=== PATIENT | female | born 1990 | race Caucasian/White ===

== ENCOUNTER 2022-02-01 06:55 | Inpatient (IN) | payer MEDICAID ==
[~2022-02-01] VITALS: Ht 177.8 cm; Wt 69.0 kg
[~2022-02-01 06:55] MED LIST: ALPR0.5T PO; DIGO0.1220 PO; HYDR-4798 PO; LIDO5DIS21 TOP; MET25T PO; ONDA-144 PO
[2022-02-01] MEDS ORDERED: LIDOCAINE 2%HCL (LOCAL ANESTH.) INJ 10ml MDV ONE ×2 (07:59→08:01)
[2022-02-01] MEDS ORDERED: fentaNYL CITRATE 100 MCG/2 ML VL ONE (08:07)
[2022-02-01] MEDS ORDERED: ONDANSETRON HCL 4 MG/2 ML VIAL ONE (08:08)
[2022-02-01] MEDS ORDERED: MIDAZOLAM HCL 2MG/2ML 2ml VIAL (1mg/ml) ONE (08:08)
[2022-02-01] MEDS ORDERED: ceFAZolin 1GM/50ML 50 ML IV ONE (09:55)
[2022-02-01] MEDS ORDERED: ASPirin 81 mg TAB ONE (09:57)
[2022-02-01] MEDS ORDERED: NITROGLYCERIN 0.4 MG SL TAB SL PRN (12:00)
[2022-02-01] MEDS ORDERED: MORPHINE SULFATE INJECTION 2 MG/ML SYRG IV PRN (12:00)
[2022-02-01] MEDS ORDERED: ONDANSETRON HCL 4 MG/2 ML VIAL IV PRN (12:00)
[2022-02-01] MEDS: HYDROcodone-ACET 5/325MG TAB PO PRN (13:22)
[2022-02-01] MEDS ORDERED: DIGOXIN 0.125 MG TAB PO ONE (14:00)
[2022-02-01] MEDS ORDERED: METOPROLOL TARTRATE 25 MG TAB PO ONE (14:00)
[2022-02-01] MEDS: ALPRAZolam 0.5 MG TAB PO PRN ×2 (14:25→22:26)
[2022-02-01 16:51] VITALS: BP 127/77
[2022-02-01 22:00] VITALS: BP 131/85
[2022-02-02 05:00] VITALS: BP 122/75
[2022-02-02 09:00] VITALS: BP 127/85
[2022-02-02] MEDS: HYDROcodone-ACET 5/325MG TAB PO PRN (09:23)
[2022-02-02] MEDS ORDERED: METOPROLOL TARTRATE 25 MG TAB PO SCH (10:00)
[2022-02-02] MEDS ORDERED: ASPirin-EC 81 mg tab PO SCH (10:00)
[2022-02-02] MEDS ORDERED: ALPRAZolam 0.5 MG TAB PO SCH (10:00)
[2022-02-02] MEDS ORDERED: DIGOXIN 0.125 MG TAB PO SCH (10:00)
[2022-02-02] MEDS: ALPRAZolam 0.5 MG TAB PO PRN (10:36)
[2022-02-02 13:00] VITALS: BP 123/80
[2022-02-02 15:55] VITALS: BP 123/80
== END 2022-02-02 16:29 | disposition home or self-care (01) | DRG 175 ==
LOC: CATH 06:55 → TELE 11:51 → TELE-WESTW 12:34 → TELE 12:34 → TELE-WESTW 15:23
PROVIDERS: ADMIT Specialist; ATTEND Specialist
PROC: 4A0234Z Measurement of Cardiac Electrical Activity, Percutaneous Approach (ICD-10-PCS; principal; 2022-02-01)
PROC: 02583ZZ Destruction of Conduction Mechanism, Percutaneous Approach (ICD-10-PCS; 2022-02-01)
PROC: 02K83ZZ Map Conduction Mechanism, Percutaneous Approach (ICD-10-PCS; 2022-02-01)
DX: I47.1 Supraventricular tachycardia (principal); Z20.822 Contact with and (suspected) exposure to COVID-19
CPT/HCPCS: 99152; 99153; G0378; J0690; J2001; J2250; J2405

== ENCOUNTER 2025-08-02 11:54 | Inpatient (IN) | payer MEDICAID ==
[~2025-08-02] VITALS: Ht 175.3 cm; Wt 67.3 kg
[~2025-08-02 11:54] MED LIST changes: -DIGO0.1220 PO; +DIGO125T11 PO
--- NOTE | 2025-08-02 12:09 | ED.PDOC ---
History of Present Illness HPI Comments 34-year-old female came to the ER stating that she has been having chest pain for the past few days. No radiation of the chest pain to the shoulder back arm. She has been feeling lightheaded ever since she started to have this chest pain. She does have a history of hypertension and SVT for which she she was ablated. She does take flecainide. Denies any other symptoms. Chief Complaint: Chest Pain Time Seen by MD: 12:00 Reviewed Notes: Nurses Notes, Medications, Allergies Allergies: Coded Allergies: NO KNOWN ALLERGIES (Unverified , 01/30/22) Home Meds Reported Medications Ondansetron (Zofran) 4 Mg Tab, 8 MG PO PRN for NAUSEA / VOMITING 01/30/22 Lidocaine (LIDODERM 5% TOPICAL PATCH) 1 Patch Ph, 1 PATCH TOP DAILY PRN for MILD PAIN (1-3 PAIN SCALE) 01/30/22 Hydrocodone-Acetaminophen (Hydrocodone Bitartrate/AC 10-325 mg) 1 Tab Tab, 1 TAB PO TIDPRN PRN for MODERATE PAIN (4-6 PAIN SCALE) 01/30/22 Alprazolam (Xanax) 0.5 Mg Tb, 1 TAB PO [id number] PRN for ANXIETY 01/30/22 Digoxin (Digox) 125 Mcg Tab, 125 MCG PO DAILY 01/30/22 Metoprolol Tartrate (Lopressor) 25 Mg Tb, 12.5 MG PO DAILY 01/30/22 Information Source: Patient Mode of Arrival: Ambulatory Severity: Moderate Timing: Days Duration: Since onset Past Medical History PAST MEDICAL HISTORY: HTN Surgical History: Denies all surgeries 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 Social History Smoker: Non-Smoker Alcohol: Denies ETOH Use Drugs: Denies Drug Use Constitutional: denies: chills, diaphoresis, fatigue, fever, malaise, sweats, weakness, others EENTM: denies: blurred vision, double vision, ear bleeding, ear discharge, ear drainage, ear pain, ear ringing, eye pain, eye redness, hearing loss, mouth pain, mouth swelling, nasal discharge, nose bleeding, nose congestion, nose pain, photophobia, tearing, throat pain, throat swelling, voice changes, others Respiratory: denies: cough, hemoptysis, orthopnea, SOB at rest, shortness of breath, SOB with excertion, stridor, wheezing, others Cardiovascular: reports: chest pain; denies: dizzy spells, diaphoresis, Dyspnea on exertion, edema, irregular heart beat, left arm pain, lightheadedness, palpitations, PND, syncope, others Gastrointestinal: denies: abdomen distended, abdominal pain, blood streaked bowels, constipated, diarrhea, dysphagia, difficulty swallowing, hematemesis, melena, nausea, poor appetite, poor fluid intake, rectal bleeding, rectal pain, vomiting, others Genitourinary: denies: abnormal vagina bleeding, burning, dyspareunia, dysuria, flank pain, frequency, hematuria, incontinence, pain, , vagina discharge, urgency, others Neurological: denies: dizziness, fainting, headache, left sided numbness, left sided weakness, numbness, paresthesia, pre-existing deficit, right sided numbness, right sided weakness, seizure, speech problems, tingling, tremors, weakness, others Musculoskeletal: denies: back pain, gout, joint pain, joint swelling, muscle pain, muscle stiffness, neck pain, others Integumetry: denies: bruises, change in color, change in hair/nails, dryness, laceration, lesions, lumps, rash, wounds, others Allergic/Immunocompromised: denies: Difficulty Healing, Frequent Infections, Hives, Itching, others Hematologic/Lymphatic: denies: anemia, blood clots, easy bleeding, easy bruising, swollen glands, others Endocrine: denies: excessive hunger, excessive sweating, excessive thirst, excessive urination, flushing, intolerance to cold, intolerance to heat, unexplained weight gain, unexplained weight loss, others Psychiatric: denies: anxiety, bipolar disorder, depression, hopeless, panic disorder, schizophrenia, sleepless, suicidal, others Physical Exam General Appearance: Moderate Distress HEENT: Normal ENT Inspection, Pharynx Normal, TMs Normal Neck: Full Range of Motion, Non-Tender, Normal, Normal Inspection Respiratory: Chest Non-Tender, Lungs Clear, No Accessory Muscle Use, No Respiratory Distress, Normal Breath Sounds Cardiovascular: No Edema, No JVD, No Murmur, No Gallop, Normal Peripheral Pulses, Regular Rate/Rhythm Breast Exam: Deferred Gastrointestinal: No Organomegaly, Non Tender, No Pulsatile Mass, Normal Bowel Sounds, Soft Genitalia: Deferred Pelvic: Deferred Rectal: Deferred Extremities: No calf tenderness, Normal capillary refill, Normal inspection, N ormal range of motion, Non-tender, No pedal edema Musculoskeletal : Apperance: Normal Neurologic: Alert, proof technician II-XII nml as Tested, No Motor Deficits, Normal Affect, Normal Mood, No Sensory Deficits Cerebellar Function: Normal Reflexes: Normal Skin: Dry, Normal Color, Warm Peripheral Pulses: 3+ Radial (R), 3+ Radial (L) Lymphatic: No Adenopathy Was a procedure done? Was a procedure done?: No EKG EKG : Pulse Rate (adult): 79 Cardiac Rhythm: NSR Differential Dx Considerations may include: Anemia Electrolyte imbalance X-Ray, Labs, Meds, VS Vital Signs Date Time Temp Pulse Resp B/P (MAP) Pulse Ox O2 Delivery O2 Flow Rate FiO2 08/02/25 11:58 98.0 97 16 138/82 97 98.0 Patient alert. Complaining of chest pain. Vitals stable. Answering questions. Was given aspirin. EKG reviewed does not show any acute changes pain High-risk. Cardiology consultation. Echocardiogram. Explained to the patient. Continue monitoring. Time of 1ST Reevaluation: 12:07 Reevaluation 1ST: Unchanged Patient Education/Counseling: Diagnosis, Treatment, Prognosis Family Education/Counseling: No Family Present SEPSIS Sepsis Screen Date sepsis recognized/suspect: Aug 02, 2025 Time Sepsis recognized/suspect: 115 Recent Procedure: No On Antibiotic Therapy: No Respiratory Rate >20: No Heart Rate >90: Yes Temp<36 C (96.8 F) or >38.3 C: No SBP <90 or MAP <65 mmHG: No New Acute Mental Status Change: No Is the patient on CPAP, BIPAP,: No Physician Orders Troponin-I Hs (08/02/25 12:03) Electrocardigram (08/02/25 12:03) Troponin-I Hs (08/02/25 13:03) Troponin-I Hs (08/02/25 15:03) Electrocardigram (08/02/25 13:03) Electrocardigram (08/02/25 15:03) Vital Signs Date Time Temp Pulse Resp B/P (MAP) Pulse Ox O2 Delivery O2 Flow Rate FiO2 08/02/25 11:58 98.0 97 16 138/82 97 98.0 Departure 1 Departure Time of Disposition: 12:08 Impression: Primary Impression: Chest pain of unknown etiology Disposition: ADMITTED INPATIENT Admit to: Med Surg Condition: Guarded Critical Care Note Critical Care Time?: Yes (90 min-critical care time only) Stability Stability form required: No Heart Score Heart Score: Heart Score Response (Comments) Value History Slightly Suspicious 0 EKG Normal 0 Age <45 0 Risk Factors 1 or 2 risk factors 1 Troponin Normal limit 0 Total 1 BERNICE MONTERO MD Aug 02, 2025 12:09
[2025-08-02 12:24] LABS: Hematocrit 37.9 % (36.0-46.0); Hemoglobin 12.9 g/dL (12.2-16.2); Mean Corpuscular Hemoglobin 31.7 pg (28.0-32.0); Mean Corpuscular Volume 93.1 fL (80.0-100.0); Nucleated Red Blood Cells % 0.0 %
[2025-08-02 12:34] LABS: Chloride 103 mmol/L (98-107); Sodium 140 mmol/L (136-145)
[2025-08-02 12:35] LABS: Anion Gap 8 (5-15); Calcium 9.3 mg/dL (8.7-10.4); Carbon Dioxide 29 mmol/L (20-31)
--- NOTE | 2025-08-02 12:37 | DVH ---
AP portable chest CLINICAL INDICATION: sob FINDINGS: Heart size is normal. No infiltrates or effusions. No bony thoracic abnormalities. IMPRESSION: 1. Normal chest x-ray.
[2025-08-02 12:40] LABS: BUN/Creatinine Ratio 6.7 (10.0-20.0); Glucose 93 mg/dL (74-106)
[2025-08-02 12:42] LABS: Blood Urea Nitrogen 7 mg/dL (9-23); Potassium 3.4 mmol/L (3.5-5.1)
[2025-08-02 13:05] LABS: Urine Protein, UAD Negative (Negative)
--- NOTE | 2025-08-02 13:07 | ECG ---
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
--- NOTE | 2025-08-02 14:54 | ECG ---
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
[2025-08-02] MEDS ORDERED: DOCUSATE SOD 100 MG CAP PO PRN ×2 (15:30→15:45)
[2025-08-02] MEDS ORDERED: POTASSIUM EFFERVESENT TAB 25 MEQ PO ONE (15:30)
[2025-08-02] MEDS ORDERED: SODIUM CHLORIDE 0.9% 1,000 ML IV SCH (15:30)
[2025-08-02] MEDS ORDERED: MORPHINE SULFATE INJ 2 MG/ml SYRG IV PRN ×2 (15:30→15:45)
[2025-08-02] MEDS ORDERED: ONDANSETRON HCL 4 MG/2 ML VIAL IV PRN ×2 (15:30→15:45)
[2025-08-02] MEDS ORDERED: NITROGLYCERIN 0.4 MG SL TAB SL PRN ×2 (15:30→15:45)
--- NOTE | 2025-08-02 15:32 | DVHHP2 ---
History of Present Illness Reason for Visit: chest pain History of Present Illness 35-year-old female with a past medical history of hypertension and supraventricular tachycardia (SVT) presents with two days of chest pain, fatigue, and palpitations. She underwent her last ablation procedure on February 02, [address] Holm, with prior care through [facility] as well. She states she has been adherent to her medications, including cardizem and flecainide, and has recently seen her tie puller. For the past two days, she reports intermittent chest pain radiating to her left arm and back, accompanied by increased fatigue, weakness, and lightheadedness. She denies fever, cough, or other infectious symptoms. She tracks her heart rate via an Android smartwatch and notes that her HR fluctuates between the 50s and 140s daily, with a recent peak of 160 bpm on July 17. Today, she reports her heart rate has been consistently in the 120s. She was previously instructed to come to the ED if symptomatic. She reports that the weakness is more pronounced when her HR drops into the 50s. There are no specific aggravating or relieving factors for the chest pain. while In the ED, the patient underwent a full cardiac workup. Labs revealed CBC and BMP unremarkable aside from troponins (x2) which were negative, creatinine 1.04, TSH pending, and magnesium drawn. Chest X-ray and D-dimer were unremarkable. Given ongoing symptoms and abnormal heart rate variability, she will be admitted for further monitoring with cardiology consultation and echocardiogram ordered. Telemetry monitoring has been initiated. Past Medical History see hpi above Past Surgical History see hpi above Family History Reviewed, non-contributory to the management of this case. Past Social History The patient lives at home, denies smoking, alcohol or illicit drugs abuse. Review of Systems Constitutional: No: Fever, Chills, Sweats, Weakness, Malaise, Other Eyes: No: Pain, Vision change, Conjunctivae inflammation, Eyelid inflammation, Other, Redness ENT: No: Ear pain, Ear discharge, Nose pain, Nose discharge, Nose congestion, Mouth pain, Mouth swelling, Throat pain, Throat swelling, Other Respiratory: No: Cough, Dry, Shortness of breath, SOB with excertion, Wheezing, Hemoptysis, Pleuritic Pain, Sputum, Wheezing, Other Cardiovascular: Chest Pain; No: Palpitations, Orthopnea, Paroxysmal Noc. Dyspnea, Edema, Lt Headedness, Other Gastrointestinal: No: Nausea, Vomiting, Abdominal Pain, Diarrhea, Constipation, Melena, Hematochezia, Other Genitourinary: No Dysuria, No Frequency, No Incontinence, No Hematuria, No Retention, No Other Musculoskeletal: No: other, neck pain, shoulder pain, arm pain, back pain, hand pain, leg pain, foot pain Skin: No: Rash, Lesions, Jaundice, Bruising, Other Neurological: No: Weakness, Numbness, Incoordination, Change in speech, Confusion, Seizures, Other Allergies: Coded Allergies: NO KNOWN ALLERGIES (Unverified , 01/30/22) Exam Vital Signs Vital Signs Date Time Temp Pulse Resp B/P (MAP) Pulse Ox O2 Delivery O2 Flow Rate FiO2 08/02/25 14:53 67 08/02/25 12:22 15 138/62 (87) 95 08/02/25 12:20 Room Air* 0 21 08/02/25 11:58 98.0 98.0 General Appearance: Alert, Oriented X3, Cooperative, No acute distress HEENT: Atraumatic, PERRLA, EOMI, Mucous membr. moist/pink Respiratory: Clear to auscultation, Normal air movement Cardiovascular: Regular rate, Normal S1, Normal S2, No murmurs Abdominal: Normal bowel sounds, Soft, No tenderness, No hepatospenomegaly, No masses Extremities: No clubbing, No cyanosis, No edema, Normal pulses, No tenderness/swelling Skin: No rashes, No breakdown, No significant lesion Neuro: Normal gait, Normal speech, Strength at 5/5 X4 ext, Normal tone, Sensation intact, Cranial nerves 3-12 NL Psych/Mental Status: Mental status NL, Mood NL Labs/Xrays Chest x-ray unremarkable I reviewed labs, imaging CT scan abdomen pelvis, EKG and all diagnostic studies on this patient from ED records and the medical chart Labs Test 08/02/25 12:46 08/02/25 12:30 08/02/25 12:08 Range/Units Troponin I High Sensitivity < 3 L </=34 ng/L Urine Color Colorless Yellow Urine Clarity Clear Clear Urine pH 6.0 5.0-9.0 Urine Specific [place] 1.006 1.001-1.035 Urine Protein Negative Negative Urine Ketones Negative Negative Urine Blood Trace H Negative /uL Urine Nitrite Negative Negative Urine Bilirubin Negative Negative Urine Urobilinogen Normal Negative mg/dL Urine Leukocyte Esterase Negative Negative /uL Urine RBC 1 0 - 4 /hpf Urine Microscopic WBC < 1 0-5 /HPF Urine Squamous Epithelial Cells Few <5 /hpf Urine Bacteria None seen None Seen /hpf Urine Glucose Normal Normal mg/dL White Blood Count 6.0 4.4-10.8 10^3/uL Red Blood Count 4.08 4.0-5.20 10^6/uL Hemoglobin 12.9 12.2-16.2 g/dL Hematocrit 37.9 36.0-46.0 % Mean Corpuscular Volume 93.1 80.0-100.0 fL Mean Corpuscular Hemoglobin 31.7 28.0-32.0 pg Mean Corpuscular Hemoglobin Concent 34.0 32.0-36.0 g/dL Red Cell Distribution Width 13.4 11.8-14.3 % Platelet Count 243 140-450 10^3/uL Mean Platelet Volume 7.4 6.9-10.8 fL Neutrophils (%) (Auto) 65.0 37.0-80.0 % Lymphocytes (%) (Auto) 25.8 10.0-50.0 % Monocytes (%) (Auto) 6.7 0.0-12.0 % Eosinophils (%) (Auto) 1.3 0.0-7.0 % Basophils (%) (Auto) 1.2 0.0-2.0 % Neutrophils # (Auto) 3.9 1.6-8.6 10 ^3/uL Lymphocytes # (Auto) 1.5 0.4-5.4 10 ^3/uL Monocytes # (Auto) 0.4 0-1.3 10 ^3/uL Eosinophils # (Auto) 0.1 0-0.8 10 ^3/uL Basophils # (Auto) 0.1 0-0.2 10 ^3/uL Nucleated Red Blood Cells 0.0 % D-Dimer, Quantitative < 0.19 0.0-0.49 mg/L FEU Sodium Level 140 136-145 mmol/L Potassium Level 3.4 L 3.5-5.1 mmol/L Chloride Level 103 98-107 mmol/L Carbon Dioxide Level 29 20-31 mmol/L Anion Gap 8 5-15 Blood Urea Nitrogen 7 L 9-23 mg/dL Creatinine 1.04 H 0.550-1.02 mg/dL Glomerular Filtration Rate Calc 72 >90 mL/min BUN/Creatinine Ratio 6.7 L 10.0-20.0 Serum Glucose 93 74-106 mg/dL Calcium Level 9.3 8.7-10.4 mg/dL SEPSIS Sepsis Screen Date sepsis recognized/suspect: Aug 02, 2025 Time Sepsis recognized/suspect: 1154 Recent Procedure: No On Antibiotic Therapy: No Respiratory Rate >20: No Heart Rate >90: Yes Temp<36 C (96.8 F) or >38.3 C: No SBP <90 or MAP <65 mmHG: No New Acute Mental Status Change: No Is the patient on CPAP, BIPAP,: No Physician Orders Electrocardigram (08/02/25 15:03) Chest Portable (08/02/25 12:09) *Consult Dr. Holm (08/02/25 12:09) Admit (08/02/25 15:24) Allergies (08/02/25 15:24) Code Status (08/02/25 15:24) 0.9% Ns 1000 Ml (08/02/25 15:30) Ondansetron Hcl (Zofran) (08/02/25 15:30) Docusate Sodium Capsule (Colace Capsule) (08/02/25 15:30) Complete Blood Count (08/03/25 04:00) Comprehensive Metabolic Panel (08/03/25 04:00) Cardiac Diet-2gna,Lofat,Lochol (08/02/25 Dinner) Echo 2d Mode Cardiac Dop (08/02/25 15:24) Condition: Stable (08/02/25 15:24) BRP (08/02/25 15:24) Morphine Sulfate Injection (08/02/25 15:30) Sequential Compression Device (08/02/25 ) Nitroglycerin Sublingual (Ntrostat Subli (08/02/25 15:30) Stat Ekg For Chest Pain (08/02/25 15:24) Notify Of Changes From Base (08/02/25 15:24) Sales Merchandising Specialist For 24 Hours (08/02/25 15:24) Emergency Dysrhythmia Protocol (08/02/25 15:24) Rhythm Strips Once Every Shift (08/02/25 15:24) Oxygen By Nasal Cannula (08/02/25 15:24) Potassium Effervesent Tab (Klor-Con/Ef) (08/02/25 15:30) Magnesium (08/02/25 15:24) Phosphorus (08/02/25 15:24) Thyroid Stimulating Hormone (08/02/25 15:24) Vital Signs Date Time Temp Pulse Resp B/P (MAP) Pulse Ox O2 Delivery O2 Flow Rate FiO2 08/02/25 14:53 67 08/02/25 13:06 63 08/02/25 12:22 80 15 138/62 (87) 95 08/02/25 12:20 Room Air* 0 21 08/02/25 12:09 79 08/02/25 12:05 79 08/02/25 11:58 98.0 97 16 138/82 97 98.0 Laboratory Tests Test 08/02/25 12:08 White Blood Count 6.0 10^3/uL (4.4-10.8) Medications Medications Dose Ordered Sig/Annette Route Start Time Stop Time Status Last Admin Dose Admin Aspirin 325 mg ONCE ONCE PO 08/02/25 12:15 08/02/25 12:16 DC 08/02/25 12:16 325 MG Assessment/Plan Assessment/Plan 34-year-old female with Chest pain, fatigue, and tachycardia in patient with p rior SVT and ablation; admitted for telemetry monitoring, cardiology evaluation, and echocardiogram. acute SVT, s/p hx Ablation Last ablation February 02, [address] Holm Reports HR fluctuations 54140 bpm (based on Android watch) Today HR sustained in 120s Troponins negative 2, no acute ischemia Cardiology consult echocardiogram ordered Telemetry for rhythm monitoring cont home medication nursing to put dose in computer ordered tsh and mag, phos fu results acute Atypical Chest Pain Radiates to left back and arm No fever, no cough, no signs of infection Chest X-ray normal, D-dimer negative Monitor cardiac enzymes, EKGs, and telemetry acute Fatigue and Lightheadedness Likely secondary to arrhythmia and HR variability Monitor for hypotension or bradyarrhythmias acute hypokalemia replete k ordered mag and phos fu results chronic problems Hypertension Continue home antihypertensive Supraventricular tachycardia S/p cardiac ablation (January 2022) Hypertension FEN / PPx: Fluids: IV hydration Electrolytes: Monitor BMP, TSH, and magnesium Nutrition: Regular cardiac diet DVT Prophylaxis: SCDs while inpatient GI Prophylaxis: no gi ppx since no hx of gerds or gi bleed DISPOSITION: Admit to telemetry unit for monitoring and evaluation of chest pain, palpitations, and fatigue in the setting of prior SVT ablation. Cardiology to follow. Continue monitoring vitals, heart rhythm, and lab results. Echocardiogram pending. Plan discussed with: Patient My Orders Orders - SANDRINE DHALIWAL DNP Procedure Category Date Status Time Admit ADMIT 08/02/25 Verified 15:24 Allergies NATE 08/02/25 Verified 15:24 Code Status CODE 08/02/25 Verified 15:24 0.9% Ns 1000 Ml PHA 08/02/25 Verified 15:30 Ondansetron Hcl PHA 08/02/25 Verified (Zofran) 15:30 Docusate Sodium PHA 08/02/25 Verified Capsule (Colace 15:30 Complete Blood Count LAB 08/03/25 Verified 04:00 Comprehensive LAB 08/03/25 Verified Metabolic Panel 04:00 Cardiac DIET 08/02/25 Verified Diet-2gna,Lofat,Lochol Dinner Echo 2d Mode Cardiac US 08/02/25 Verified DOP 15:24 Condition: Stable [facility] 08/02/25 Verified 15:24 BRP NATE 08/02/25 Verified 15:24 Morphine Sulfate PHA 08/02/25 Verified Injection 15:30 Sequential NATE 08/02/25 Verified Compression Device Nitroglycerin PHA 08/02/25 Verified Sublingual (Ntrostat 15:30 Stat Ekg For Chest [facility] 08/02/25 Verified Pain 15:24 Notify Md Of Changes [facility] 08/02/25 Verified From Base 15:24 Sales Merchandising Specialist For [facility] 08/02/25 Verified 24 Hours 15:24 Emergency Dysrhythmia [facility] 08/02/25 Verified Protocol 15:24 Rhythm Strips Once [facility] 08/02/25 Verified Every Shift 15:24 Oxygen By Nasal RT 08/02/25 Verified Cannula 15:24 Potassium Effervesent PHA 08/02/25 Verified Tab (Klor-Con/Ef) 15:30 Magnesium LAB 08/02/25 Verified 15:24 Phosphorus LAB 08/02/25 Verified 15:24 Thyroid Stimulating LAB 08/02/25 Verified Hormone 15:24 Date of Service: Aug 02, 2025 Billing Provider: SANDRINE DHALIWAL DNP Common Visit Codes: [id number] INP/OBS CARE (HIGH) SANDRINE DHALIWAL [facility] Aug 02, 2025 15:32
[2025-08-02 15:49] LABS: Magnesium 2.0 mg/dL (1.6-2.6)
[2025-08-02] MEDS: SODIUM CHLORIDE 0.9% 1,000 ML IV SCH (18:37)
[2025-08-02] MEDS: POTASSIUM EFFERVESENT TAB 25 MEQ PO ONE (18:45)
[2025-08-02] MEDS ORDERED: DILT60TA PO (20:16)
[2025-08-02] MEDS ORDERED: FLEC100T PO (20:16)
[2025-08-02 20:36] VITALS: PULSE 81; RESP 17; O2SAT 98
[2025-08-02] MEDS: dilTIAZem 120MG ER CAP PO ONE (21:54)
[2025-08-02] MEDS: FLECAINIDE ACETATE 50 MG TAB PO ONE (23:08)
[2025-08-02 23:57] VITALS: PULSE 64; RESP 16; O2SAT 99
[2025-08-03] VITALS (9 sets, daily range): BP systolic 114–134; BP diastolic 82–95; PULSE 48–74; RESP 16–19; TEMP 97.8–99.1; O2SAT 98–100
--- NOTE | 2025-08-03 02:32 | ECG ---
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
--- NOTE | 2025-08-03 11:00 | DVHINCON2 ---
Date of service: Aug 03, 2025 History of Present Illness HPI Patient is a 34-year-old female who presented with few days of chest discomfort/palpitations/fatigue/lightheadedness. Cardiology is involved for cardiac aspects of care. She does mention tachyarrhythmia and occasional bradycardia. She is known to our practice from outside and before. She has had multiple SVT ablations in the last one was unsuccessful ([place]). She mentions compliance with medications which include 100 mg twice daily flecainide. Home Meds Reported Medications Diltiazem Hcl (Diltiazem Hcl) 60 Mg Tab, 120 MG PO DAILY, MG 08/02/25 Flecainide Acetate (Flecainide Acetate) 100 Mg Tab, 100 MG PO Q12HR, MG 08/02/25 Ondansetron (Zofran) 4 Mg Tab, 8 MG PO PRN for NAUSEA / VOMITING 01/30/22 Lidocaine (LIDODERM 5% TOPICAL PATCH) 1 Patch Ph, 1 PATCH TOP DAILY PRN for MILD PAIN (1-3 PAIN SCALE) 01/30/22 Hydrocodone-Acetaminophen (Hydrocodone Bitartrate/AC 10-325 mg) 1 Tab Tab, 1 TAB PO TIDPRN PRN for MODERATE PAIN (4-6 PAIN SCALE) 01/30/22 Alprazolam (Xanax) 0.5 Mg Tb, 1 TAB PO [id number] PRN for ANXIETY 01/30/22 Digoxin (Digox) 125 Mcg Tab, 125 MCG PO DAILY 01/30/22 Metoprolol Tartrate (Lopressor) 25 Mg Tb, 12.5 MG PO DAILY 01/30/22 Past Medical History Others Past medical history includes hypertension, narrow complex tachycardia, history of SVT and its ablation (repeatedly), depression and anxiety. She has had re peated SVT ablation (last one happened in [place] and was reportedly unsuccessful). Patient Family History: Hypertension G8 MOTHER G8 FATHER Alocohol: None Drugs: None Lives with: With family Review of Systems Constitutional: No symptom reported Cardiovascular: Palpitations Endocrine: No symptom reported Hemotologic/Lymphatic: No symptom reported All Other Systems Fourteen point review of system was performed. Relevant findings as per above and as per HPI. Otherwise negative. H&P Exam Vital Signs Vital Signs Date Time Temp Pulse Resp B/P (MAP) Pulse Ox O2 Delivery O2 Flow Rate FiO2 08/03/25 09:00 98.2 60 18 134/82 (99) 100 98.2 08/03/25 07:55 Room Air* 0 21 General Appeara: Well developed Head Exam: Normal inspection Neck Exam: Normal inspection Eye Exam: bilateral eye PERRL Mouth: Normal Inspection Pulmonary/Respiratory: Normal inspection, Lungs clear Cardiovascular/Chest: Normal inspection, Regular rate Peripheral Pulses: 2+ carotid (R), 2+ carotid (L), 2+ femoral (R), 2+ femoral (L), 2+ dorsalis pedis (R), 2+ dorsalis pedis (L), 2+ Radial (R), 2+ Radial (L) Abdominal Exam: Normal bowel sounds, Soft, No hepatospenomegaly Neuro/Mental St: Alert, Oriented Appearance: Appropriate appearance Eye contact/ Speech: Cooperative Labs/Xrays Labs Test 08/02/25 12:46 08/02/25 12:30 08/02/25 12:08 Range/Units Troponin I High Sensitivity < 3 L </=34 ng/L Urine Color Colorless Yellow Urine Clarity Clear Clear Urine pH 6.0 5.0-9.0 Urine Specific [place] 1.006 1.001-1.035 Urine Protein Negative Negative Urine Ketones Negative Negative Urine Blood Trace H Negative /uL Urine Nitrite Negative Negative Urine Bilirubin Negative Negative Urine Urobilinogen Normal Negative mg/dL Urine Leukocyte Esterase Negative Negative /uL Urine RBC 1 0 - 4 /hpf Urine Microscopic WBC < 1 0-5 /HPF Urine Squamous Epithelial Cells Few <5 /hpf Urine Bacteria None seen None Seen /hpf Urine Glucose Normal Normal mg/dL White Blood Count 6.0 4.4-10.8 10^3/uL Red Blood Count 4.08 4.0-5.20 10^6/uL Hemoglobin 12.9 12.2-16.2 g/dL Hematocrit 37.9 36.0-46.0 % Mean Corpuscular Volume 93.1 80.0-100.0 fL Mean Corpuscular Hemoglobin 31.7 28.0-32.0 pg Mean Corpuscular Hemoglobin Concent 34.0 32.0-36.0 g/dL Red Cell Distribution Width 13.4 11.8-14.3 % Platelet Count 243 140-450 10^3/uL Mean Platelet Volume 7.4 6.9-10.8 fL Neutrophils (%) (Auto) 65.0 37.0-80.0 % Lymphocytes (%) (Auto) 25.8 10.0-50.0 % Monocytes (%) (Auto) 6.7 0.0-12.0 % Eosinophils (%) (Auto) 1.3 0.0-7.0 % Basophils (%) (Auto) 1.2 0.0-2.0 % Neutrophils # (Auto) 3.9 1.6-8.6 10 ^3/uL Lymphocytes # (Auto) 1.5 0.4-5.4 10 ^3/uL Monocytes # (Auto) 0.4 0-1.3 10 ^3/uL Eosinophils # (Auto) 0.1 0-0.8 10 ^3/uL Basophils # (Auto) 0.1 0-0.2 10 ^3/uL Nucleated Red Blood Cells 0.0 % D-Dimer, Quantitative < 0.19 0.0-0.49 mg/L FEU Sodium Level 140 136-145 mmol/L Potassium Level 3.4 L 3.5-5.1 mmol/L Chloride Level 103 98-107 mmol/L Carbon Dioxide Level 29 20-31 mmol/L Anion Gap 8 5-15 Blood Urea Nitrogen 7 L 9-23 mg/dL Creatinine 1.04 H 0.550-1.02 mg/dL Glomerular Filtration Rate Calc 72 >90 mL/min BUN/Creatinine Ratio 6.7 L 10.0-20.0 Serum Glucose 93 74-106 mg/dL Calcium Level 9.3 8.7-10.4 mg/dL Phosphorus Level 2.7 2.4-5.1 mg/dL Magnesium Level 2.0 1.6-2.6 mg/dL Thyroid Stimulating Hormone (TSH) 1.17 0.55-4.78 uIU/mL Assessment/Plan Plan Patient is a 34-year-old female who presented with few days of chest discomfort/palpitations/fatigue/lightheadedness. Cardiology is involved for cardiac aspects of care. She does mention tachyarrhythmia and occasional bradycardia. She is known to our practice from outside and before. She has had multiple SVT ablations in the last one was unsuccessful ([place]). She mentions compliance with medications which include 100 mg twice daily flecainide. Not in acute distress. Sitting in bed. No JVD. Mucosa is pink and wet. No carotid bruit. No goiter. Not using accessory muscles of breathing. Lungs are clear to auscultation. Cardiac: Regular, no thrill/gallop. Abdomen is soft. Bowel sound is positive. There was no gross mass/hepatomegaly. There is no peripheral edema. Dorsalis pedis is 2+ bilateral. There is no gross lateralized neurologic deficit. Past medical history includes hypertension, narrow complex tachycardia, history of SVT and its ablation (repeatedly), depression and anxiety. She has had repeated SVT ablation (last one happened in [place] and was reportedly unsuccessful). Echocardiogram of October 2024 (performed in the office) revealed ejection fr action of 65-70%, normal diastolic, normal atria, trace MR, mild tricuspid regurgitation and right ventricular systolic pressure of less than [address] Angiography of the coronaries performed in February 2024 revealed normal coronaries and 0 calcium score Hemoglobin: 12.9 WBC: 6.0 D-dimer: <0.19 Potassium: 3.4 Creatinine: 1.04 Troponin (high sensitive): <3 - <3 TSH: 1.17 Chest x-ray revealed: IMPRESSION: 1. Normal chest x-ray. EKG reveals sinus rhythm with no ST-T changes Tele reveals sinus rhythm Patient is a 34-year-old female who presented with palpitation/dizziness and fatigue. Does have history of paroxysmal atrial tachycardia for which has had repeated ablation. Is on flecainide (100 mg twice daily) and diltiazem (long- actin mg daily). Is found to have some hypokalemia which could have contributed to the clinical picture. ACS is not considered. Tachyarrhythmia History of SVT Anxiety Hypertension Status post SVT ablation Cardiac suggestion for management: Managed on telemetry Follow-up electrolytes and kidney function tests and correct abnormalities. Keep potassium above 4 and magnesium above 2 Request for BNP Request for echocardiogram Flecainide: 100 mg twice daily Diltiazem ER: 120 mg once daily Further evaluation and management depends on the above and clinical course Thank you for consultation Plan discussed with: Patient, Other (nurse) ADAMARIS XIAO MD Aug 03, 2025 11:00
[2025-08-03] MEDS: FLECAINIDE ACETATE 50 MG TAB PO ONE (11:18)
--- NOTE | 2025-08-03 11:46 | DVHPN2 ---
Progress Note Date Seen: Aug 03, 2025 Medical Necessity Reason Pt with a Central, PICC or Fol: No Subjective Patient reports: No new complaints Review of Systems: HEENT:Normal, CVS:Normal, RESPIRATORY:Normal, GI:Normal, :Normal, MSK:Normal, NEURO:Normal Objective vital signs Vital Sign Date Time Temp Pulse Resp B/P (MAP) Pulse Ox O2 Delivery O2 Flow Rate FiO2 08/03/25 09:00 98.2 60 18 134/82 (99) 100 98.2 08/03/25 07:55 Room Air* 0 21 Total Intake and Output 08/02/25 08/02/25 08/03/25 15:00 23:00 07:00 Intake Total 100 ml 400 ml Balance 100 ml 400 ml medications Current Medications Medications Dose Ordered Sig/Annette Route Start Time Stop Time Status Last Admin Dose Admin Ondansetron HCl 4 mg Q4HP PRN IV 08/02/25 15:45 Morphine Sulfate 2 mg Q4HPRN PRN IV 08/02/25 15:45 Sodium Chloride 1,000 ml @ 100 mls/hr Q10H IV 08/02/25 15:45 08/02/25 18:37 100 MLS/HR Docusate Sodium 100 mg BIDPRN PRN PO 08/02/25 15:45 Nitroglycerin 0.4 mg Q5MINP PRN SL 08/02/25 15:45 Flecainide Acetate 100 mg Q12HR PO 08/03/25 22:00 Diltiazem HCl 120 mg DAILY PO 08/03/25 20:00 Examination: GENERAL:Normal, HEENT:Normal, NECK:Normal, LUNGS:Normal, CVS:Normal, ABDOMEN:Normal, MSK:Normal, SKIN:Normal, NEURO:Normal, :Normal laboratory and microbiology Laboratory Tests 08/02/25 12:08 Test 08/02/25 12:08 Range/Units Serum Glucose 93 74-106 mg/dL Problem List/Assessment/Plan Problem List/Assessment/Plan #1 svt s/p ablation: cont meds #2 anxiety: start buspar Plan discussed with: Patient Date of Service: Aug 03, 2025 Billing Provider: ASHLEIGH MARTIN MD Common Visit Codes: [id number] INP/OBS CARE(HIGH) ASHLEIGH MARTIN MD Aug 03, 2025 11:46
[2025-08-03] MEDS: POTASSIUM EFFERVESENT TAB 25 MEQ GT ONE (11:57)
[2025-08-03 13:34] LABS: Anion Gap 8 (5-15)
[2025-08-03 13:36] LABS: Calcium 9.3 mg/dL (8.7-10.4); Carbon Dioxide 29 mmol/L (20-31); Chloride 106 mmol/L (98-107); Potassium 4.6 mmol/L (3.5-5.1); Sodium 143 mmol/L (136-145)
[2025-08-03 13:39] LABS: BUN/Creatinine Ratio 7.9 (10.0-20.0); Blood Urea Nitrogen 8 mg/dL (9-23); Glucose 116 mg/dL (74-106)
[2025-08-03 13:40] LABS: Magnesium 1.9 mg/dL (1.6-2.6)
[2025-08-03] MEDS: ACETAMINOPHEN 325 MG TAB PO PRN (17:26)
[2025-08-03] MEDS: dilTIAZem 120MG ER CAP PO SCH (21:11)
[2025-08-03] MEDS: FLECAINIDE ACETATE 50 MG TAB PO SCH (21:11)
[2025-08-04 01:00] VITALS: BP 126/89; PULSE 69; RESP 20; TEMP 97.9; O2SAT 98
[2025-08-04 05:00] VITALS: BP 127/85; PULSE 77; RESP 20; TEMP 97; O2SAT 99
[2025-08-04 06:06] LABS: Chloride 106 mmol/L (98-107); Potassium 4.0 mmol/L (3.5-5.1); Sodium 144 mmol/L (136-145)
[2025-08-04 06:07] LABS: Anion Gap 9 (5-15); Calcium 9.3 mg/dL (8.7-10.4); Carbon Dioxide 29 mmol/L (20-31)
[2025-08-04 06:12] LABS: BUN/Creatinine Ratio 9.8 (10.0-20.0); Blood Urea Nitrogen 10 mg/dL (9-23); Glucose 79 mg/dL (74-106)
[2025-08-04 06:13] LABS: Magnesium 2.1 mg/dL (1.6-2.6)
[2025-08-04 08:00] VITALS: PULSE 79
--- NOTE | 2025-08-04 08:05 | DVHSR ---
APPROVED REPORT EXAM: Two-dimensional and M-mode echocardiogram with Doppler and color Doppler. Blood Pressure: 114/90 mmHg INDICATION Eval cardiac function RISK FACTORS Height: 5'9", Weight: 151 DIMENSIONS LVDd4.8 (3.8-5.7cm)LA (2D)4.4 (1.9-4.0cm)Aortic Root2.3 (2.0-3.7cm) LVDs3.2 (2.5-4.0cm)LA (MM) (1.9-4.0cm)Aortic Cusp Exc1.2 (1.5-2.0cm) EF (%) 62.0 (55-70%)Rt. Atrium3.0 (1.9-4.0cm)Asc. Aorta cm IVSd0.8 (0.7-1.1cm)RV (D)3.0 (1.8-2.4cm) PWd0.8 (0.7-1.1cm) Mitral Valve MitralMitral Stenosis E wave0.90m/sMV Mean GR.mmHg A wave0.65m/sMV Peak GR.mmHg E/A ratio1.42D MVAcm2 DECEL [id number] 1/2 Timems Aortic Valve Aortic ValveAortic Stenosis V10.92m/Prachi Mean GR.6mmHg V21.55m/Prachi Peak GR.10mmHg LVOT Diameter2.1 (1.8-2.4cm)Doppler AVA2.05cm2 Pulmonic Valve V20.82m/s Conclusion Left ventricle: Left ventricle was normal-sized with normal systolic function. LVEF was around 60%. There was no wall motion abnormality. Diastolic function of left ventricle was normal. Right ventricle was normal-sized with normal systolic function. Both atria were normal-sized. Aortic valve was trileaflet. There was no aortic insufficiency/stenosis. There was trace mitral reg urgitation. There was no tricuspid regurgitation. There was no pulmonary valve insufficiency. As there was no good tricuspid regurgitation jet, right ventricular systolic pressure could not be es timated. There was no pericardial effusion.
--- NOTE | 2025-08-04 08:14 | DVHPN2 ---
Progress Note - Dictate Date Seen: Aug 04, 2025 Medical Necessity Reason Pt with a Central, PICC or Fol: No vital signs Vital Sign Date Time Temp Pulse Resp B/P (MAP) Pulse Ox O2 Delivery O2 Flow Rate FiO2 08/04/25 07:33 Room Air* 0 21 08/04/25 05:00 97.0 77 20 127/85 (99) 99 97.0 Total Intake and Output 08/03/25 08/03/25 08/04/25 15:00 23:00 07:00 Intake Total 600 ml 240 ml Balance 600 ml 240 ml medications Current Medications Medications Dose Ordered Sig/Annette Route Start Time Stop Time Status Last Admin Dose Admin Ondansetron HCl 4 mg Q4HP PRN IV 08/02/25 15:45 Morphine Sulfate 2 mg Q4HPRN PRN IV 08/02/25 15:45 Docusate Sodium 100 mg BIDPRN PRN PO 08/02/25 15:45 Nitroglycerin 0.4 mg Q5MINP PRN SL 08/02/25 15:45 Flecainide Acetate 100 mg Q12HR PO 08/03/25 22:00 08/03/25 21:11 100 MG Diltiazem HCl 120 mg DAILY PO 08/03/25 20:00 08/03/25 21:11 120 MG Buspirone HCl 5 mg Q12HR PO 08/03/25 22:00 08/03/25 21:11 5 MG Acetaminophen 650 mg Q6HP PRN PO 08/03/25 17:15 08/03/25 17:26 650 MG laboratory and microbiology Laboratory Tests 08/04/25 04:38 08/02/25 12:08 Test 08/04/25 04:38 Range/Units Serum Glucose 79 74-106 mg/dL Assessment/Plan Patient is a 34-year-old female who presented with few days of chest discomfort/palpitations/fatigue/lightheadedness. Cardiology is involved for cardiac aspects of care. She does mention tachyarrhythmia and occasional bradycardia. She is known to our practice from outside and before. She has had multiple SVT ablations in the last one was unsuccessful ([place]). She mentions compliance with medications which include 100 mg twice daily flecainide. Not in acute distress. Sitting in bed. No JVD. Mucosa is pink and wet. No carotid bruit. No goiter. Not using accessory muscles of breathing. Lungs are clear to auscultation. Cardiac: Regular, no thrill/gallop. Abdomen is soft. Bowel sound is positive. There was no gross mass/hepatomegaly. There is no peripheral edema. Dorsalis pedis is 2+ bilateral. There is no gross lateralized neurologic deficit. Past medical history includes hypertension, narrow complex tachycardia, history of SVT and its ablation (repeatedly), depression and anxiety. She has had repeated SVT ablation (last one happened in [place] and was reportedly unsuccessful). Echocardiogram of October 2024 (performed in the office) revealed ejection fraction of 65-70%, normal diastolic, normal atria, trace MR, mild tricuspid regurgitation and right ventricular systolic pressure of less than [address] Angiography of the coronaries performed in February 2024 revealed normal coronaries and 0 calcium score Hemoglobin: 12.9 WBC: 6.0 D-dimer: <0.19 Potassium: 3.4 - 4.6 - 4.0 Creatinine: 1.04 - 1.01 - 1.02 Troponin (high sensitive): <3 - <3 TSH: 1.17 Chest x-ray revealed: IMPRESSION: 1. Normal chest x-ray. EKG reveals sinus rhythm with no ST-T changes Tele reveals sinus rhythm Echocardiogram revealed: Left ventricle: Left ventricle was normal-sized with normal systolic function. LVEF was around 60%. There was no wall motion abnormality. Diastolic function of left ventricle was normal. Right ventricle was normal-sized with normal systolic function. Both atria were normal-sized. Aortic valve was trileaflet. There was no aortic insufficiency/stenosis. There was trace mitral regurgitation. There was no tricuspid regurgitation. There was no pulmonary valve insufficiency. As there was no good tricuspid regurgitation jet, right ventricular systolic pressure could not be estimated. There was no pericardial effusion. Patient is a 34-year-old female who presented with palpitation/dizziness and fatigue. Does have history of paroxysmal atrial tachycardia for which has had repeated ablation. Is on flecainide (100 mg twice daily) and diltiazem (long- actin mg daily). Is found to have some hypokalemia which could have contributed to the clinical picture. ACS is not considered. Tachyarrhythmia History of SVT Anxiety Hypertension Status post SVT ablation Cardiac suggestion for management: Managed on telemetry Follow-up electrolytes and kidney function tests and correct abnormalities. Keep potassium above 4 and magnesium above 2 Flecainide: 100 mg twice daily Diltiazem ER: 120 mg once daily Cardiac sal[place]ar, can be followed as outpatient Further evaluation and management depends on the above and clinical course A total of 55 minutes was spent reviewing the patient record, examining the patient, making a diagnostic and therapeutic plan, discussing this plan with medical personnel, following up on diagnostic studies and following the patient for clinical stability excluding any and all procedures. At least 50% of this time was spent in direct, [id number] contact. Thank you for allowing me to participate in this patient's care. Further recommendations will depend on patient's clinical course. Please do not hesitate to contact me if you have any questions or concerns. This medical document was created using electronic medical record system with [employer] computerized dictation system. Although this document has been carefully reviewed, there may still be some phonetic and typographical errors. These areas are purely typographical due to the imperfection of the software programs, and do not reflect any compromise in the patient's medical care. Plan discussed with: Patient, Other (nurse) ADAMARIS XIAO MD Aug 04, 2025 08:14
[2025-08-04 09:00] VITALS: BP 124/76; PULSE 73; RESP 18; TEMP 97.6; O2SAT 99
[2025-08-04] MEDS ORDERED: BUSP5TAB51 PO (11:30)
--- NOTE | 2025-08-04 11:43 | DVHDS ---
DATE OF DISCHARGE: 08/04/2025 HISTORY OF PRESENT ILLNESS: The patient is a 34-year-old lady who was admitted with history of palpitations, chest pain, and fatigue and has history of SVT status post ablation and hypertension. HOSPITAL COURSE: The patient was seen in Cardiology consult by Dr. Lim. Echocardiogram done showed an ejection fraction of 60%. The patient's heart rate remained under control while in the hospital. The patient's TSH was within normal limits. The patient's chest x-ray was unremarkable. She will now be discharged home to resume her home medication and also be on BuSpar 5 mg b.i.d. She will follow up with her primary as well as Dr. Holm. FINAL DIAGNOSES: Therefore: * SVT with previous ablation. * Anxiety. Time spent in discharge planning and review of plan with the patient and nursing was 37 minutes. MD HOMAR Hull/EKT TID: [id number] RECEIPT: [id number]
[2025-08-04 12:00] VITALS: BP 128/89; PULSE 65; TEMP 36.4
== END 2025-08-04 12:42 | disposition home or self-care (01) | DRG 201 ==
LOC: ER 11:54 → OVERFLOW 15:24 → ER 15:34 → TELE-WESTW 23:26
PROVIDERS: ADMIT Internal Medicine; ATTEND Internal Medicine
DX: I47.10 Supraventricular tachycardia, unspecified (principal); E87.6 Hypokalemia; I10 Essential (primary) hypertension; F41.9 Anxiety disorder, unspecified; F32.A Depression, unspecified; Z82.49 Family history of ischemic heart disease and other diseases of the circulatory system; Z79.899 Other long term (current) drug therapy
CPT/HCPCS: 36415; 71045; 80048; 81001; 83735; 84100; 84443; 84484; 85025; 85379; 93005; 93306; 96360; 99291; 99292; G0378